=== PATIENT | male | born 1970 | race Caucasian/White ===

== ENCOUNTER 2019-11-28 09:09 | Emergency (ER) | payer OTHER, SELFPAY ==
[~2019-11-28] VITALS: Ht 175.3 cm; Wt 81.6 kg
[2019-11-28 09:13] VITALS: Ht 175.3 cm; Wt 81.6 kg
[2019-11-28 09:22] VITALS: BP 147/96
== END 2019-11-28 10:36 | disposition home or self-care (01) ==
LOC: ED 09:09
DX: R19.7 Diarrhea, unspecified (principal); R11.0 Nausea; R50.9 Fever, unspecified; I10 Essential (primary) hypertension; Z20.828 Contact with and (suspected) exposure to other viral communicable diseases
CPT/HCPCS: U0003-CS